=== PATIENT | female | born 1935 | race Caucasian/White ===

== ENCOUNTER 2019-04-24 09:36 | Emergency (ER) | payer MEDICARE ==
[2019-04-24 11:11] VITALS: BP 153/65
--- NOTE | 2019-04-24 11:22 | UC ---
Skin Complaint HPI - HPI Summary HPI Summary: pt states was in a hotel out of the area overnight. States woke with multiple bites appearing wounds to b/l UE and right leg. states itchy, Pt with mild erythema and swelling to area on right middle finger - stated very itchy. Pt has used [facility] hydrocortisone with improvement. Worse after showers. no fever, chills. Pt states concern spider or bug bites not immunocompromised tdap utd medications reviewed - History of Current Complaint Chief Complaint: UCSkin Time Seen by Provider: 04/24/19 11:08 Stated Complaint: SKIN COMPLAINT Hx Obtained From: Patient Pain Intensity: 0 - Allergy/Home Medications Allergies/Adverse Reactions: Allergies Allergy/AdvReac Type Severity Reaction Status Date / Time Penicillins Allergy Rash Verified 04/24/19 11:13 Sulfa (Sulfonamide Allergy Rash Verified 04/24/19 11:13 Antibiotics) -myacins Allergy See Comment Uncoded 04/24/19 11:13 Home Medications: Home Medications Allopurinol TAB* [Zyloprim 300 MG TAB*] 1 tab PO DAILY 04/24/19 [History Confirmed 04/24/19] Losartan/Hydrochlorothiazide [Losartan-Hctz 50-12.5 mg Tab] 1 tab PO DAILY 04/24 [History Confirmed 04/24/19] Montelukast Sodium TAB* [Singulair 10 MG TAB*] 1 tab PO BEDTIME 04/24/19 [ History Confirmed 04/24/19] metFORMIN* [Glucophage 500 MG TAB *] 1 tab PO DAILY 04/24/19 [History Confirmed 04/24/19] PMH/Surg Hx/FS Hx/Imm Hx Previously Healthy: Yes - Surgical History Surgical History: Yes Surgery Procedure, Year, and Place: abdominal adhesion removal 06/2018 - Family History Known Family History: Positive: Non-Contributory - Social History Occupation: Retired Lives: With Family Alcohol Use: None Substance Use Type: None Smoking Status (MU): Never Smoked Tobacco Review of Systems All Other Systems Reviewed And Are Negative: Yes Constitutional: Positive: Negative Skin: Positive: Other - pruritic bite wounds, erythema wound on right middle Physical Exam - Summary Physical Exam Summary: Vital Signs Reviewed: Yes A+Ox3, no distress Eyes: Conjunctiva Clear, RADHA. EOM intact and full ENT: Hearing grossly normal TM x 2 clear, mmoist, uvula midline, no exudate, no erythema Neck: Positive: Supple Respiratory: Positive: No respiratory distress, No accessory muscle use + CTA throughout no w/r Cardiovascular: RRR nl s1, s2 no m/r CBT <2 sec abd soft + BS nt/nd no guarding, no distension Musculoskeletal Exam: TROY x 4 without difficulty Strength Intact, ROM Intact Neurological: Positive: Alert, + sensation throughout Psychological: Positive: Normal Response To sterile processing technologist Skin: Positive: Pt with multiple, small, raised, prurutic lesions clustered on b /l mid and forearms - appear to be bite wounds ?bud bugs - no concern for scabies right middle finger pt with area of similar wound lateral aspect and DIP with surrounding erythema and TTP no drainage + TTP Triage Information Reviewed: Yes Vital Signs: Initial Vital Signs Temp 97.8 F 04/24/19 11:03 Pulse 91 04/24/19 11:03 Resp 18 04/24/19 11:03 BP 153/65 04/24/19 11:03 Pulse Ox 98 04/24/19 11:03 Course/Dx - Course Course Of Treatment: Pt with several apparent insect bite wounds to bilateral forearms and upper arms Pt with area of erythema and tenderness on right middle finger concern for early cellulitis at this site give tendernsss and erythema + full ROM will artie splint will check imaging given tenderss with room - eval for air, arthritis apap prednisone - precautions given pepcid strict return precuations pt comfortable and in agreement with plan BP elevated - h/o same - Diagnoses Provider Diagnosis: Cellulitis, Insect bite Discharge - Sign-Out/Discharge Documenting (check all that apply): Patient Departure All imaging exams completed and their final reports reviewed: Yes - Discharge Plan Condition: Stable Disposition: HOME Prescriptions: Cephalexin CAP* [Keflex 500 CAP*] 500 mg PO BID #14 cap predniSONE TAB* [Deltasone 20 MG TAB*] 20 mg PO DAILY #5 tab Patient Education Materials: Cellulitis (ED), Insect Bite or Sting (ED) Referrals: No Primary Care Phys,NOPCP [Primary Care Provider] - Additional Instructions: - Take antibiotics and prednisone as prescribed - Okay to apply cool packs to the itching areas - Okay to apply over the counter benadryl cream to the itchy areas - Monitor your wounds closely - if you have increased pain, itching, red streaking, fevers or ANY other concerns it is recommended you go to the emergency department for further evaluation. -it is recommended you schedule a follow-up appointment with your primary for when you return to [place] - Billing Disposition and Condition Condition: STABLE Disposition: Home
== END 2019-04-24 11:48 | disposition home or self-care (01) ==
LOC: UCCORT 09:36
DX: S50.862A Insect bite (nonvenomous) of left forearm, initial encounter (principal); S50.861A Insect bite (nonvenomous) of right forearm, initial encounter; S40.862A Insect bite (nonvenomous) of left upper arm, initial encounter; S40.861A Insect bite (nonvenomous) of right upper arm, initial encounter; S60.462A Insect bite (nonvenomous) of right middle finger, initial encounter; L03.011 Cellulitis of right finger; W57.XXXA Bitten or stung by nonvenomous insect and other nonvenomous arthropods, initial encounter; Y92.9 Unspecified place or not applicable; R03.0 Elevated blood-pressure reading, without diagnosis of hypertension; Z88.1 Allergy status to other antibiotic agents; Z88.0 Allergy status to penicillin; Z88.2 Allergy status to sulfonamides
CPT/HCPCS: 99202; G0463